=== PATIENT | male | born 1995 | race Caucasian/White ===

== ENCOUNTER 2020-11-22 11:16 | Emergency (ER) | payer SELFPAY ==
[2020-11-22 11:17] VITALS: BP 125/82; PULSE 65; RESP 18; TEMP 36.6; O2SAT 98; BMI 18.4
--- NOTE | 2020-11-22 12:01 | HMH.EDGENADL ---
ED Disposition Clinical Impression: Dysuria Disposition: Home, Self-Care Condition on Discharge: Good Instructions: DI for Urinary Retention in Men Referrals: Tarsha Ang MD [Primary Care Provider] - Vick Lowery MD [Staff Physician] - - Critical Care Critical Care Time: No Attestation: On 11/22/20, the high probability of a clinically significant, sudden or life threatening deterioration of the following system(s) required my full and direct attention, intervention and personal management. The time I documented below is in addition to time spent performing reported procedures but includes the following listed in this critical care notation. Medical Decision Making - Medical Records Medical records reviewed: Yes: I reviewed the patient's medical records. - [place]io Inquiry Pt receiving controlled substance: No Vital Signs: 11/22/20 11:17 11/22/20 12:33 11/22/20 12:39 Temperature 97.9 F Temperature Source Oral Pulse Rate 57 L 59 L Pulse Rate [Left Radial] 65 Respiratory Rate 18 Blood Pressure 113/88 113/88 Blood Pressure [Right Arm] 125/82 Blood Pressure Mean 92 Blood Pressure Mean [Right Arm] 96 Blood Pressure Source Automatic Cuff Blood Pressure Source [Right Arm] Automatic Cuff Blood Pressure Position Sitting 02 Sat by Pulse Oximetry 98 99 99 Oxygen Delivery Method Room Air Room Air - Lab Data Lab Results 11/22/20 12:18: Urine Color Yellow, Urine Appearance Clear, Urine pH 6.0, Ur Specific [place] 1.020, Urine Protein Negative, Urine Glucose (UA) Negative, Urine Ketones Negative, Urine Blood Negative, Urine Nitrate Negative, Urine Bilirubin Negative, Urine Urobilinogen 1.0, Ur Leukocyte Esterase Negative, Urine RBC None, Urine WBC None, Ur Squamous Epith Cells Occasional, Amorphous Sediment Trace, Urine Bacteria None, Urine Mucus Trace - Reevaluation(s) Time: 13:28 Reevaluation #1: We did perform bladder scan on the patient and he had 200 cc urine in the bladder. We did give him some oral fluids. The patient was able to void without any difficulty. There is no significant bladder pain. The patient has since then voided twice while in the emergency department. Urinalysis was unremarkable. I did instruct the patient to follow-up with his primary doctor for medication reconciliation. If he is to has any other hesitancy issues or any other symptoms he is return the emergency department immediately. Patient verbalized understanding. Medical Decision Narrative: 25-year-old male presented to the emergency department with some dysuria. Patient states that he has been able to urinate early this morning. Patient is concerned he may be a medication reaction. Symptoms did start after he started taking his antidepressant. Bladder scan will be obtained. General Adult HPI - General Chief complaint: Urogenital-Male Stated complaint: unable to urinate Time Seen by Provider: 11/22/20 11:20 Mode of Arrival: Ambulatory Limitations: No Limitations Description of Symptoms (Recalled from ER Triage Doc. by RN): c/o feeling of needing to urinate since this morning but unable to. States he has had a sip of mountain dew other than that no other drinks. He thinks he went in the middle of the night. Concern that his dose of cymbalta is causing some issues such as dizziness and nausea. - History of Present Illness HPI narrative: This is a 25-year-old male presented to the emergency department with dysuria. Patient states that he woke up this morning and was having difficulties urinating. He states that he went to urinate but could not get anything out. He states that he normally urinates all morning. He has not really eaten or drank anything this morning. He is not having any pain but he does complain of some fullness in her suprapubic region. Patient denies any testicular pain. No hematuria. No fevers or chills. Of note, the patient was recently placed back on antidepres
--- NOTE | 2020-11-22 12:08 | PC.NURSE ---
bladder scan with 221 urine noted.
--- NOTE | 2020-11-22 12:08 | PC.NURSE ---
Pt attempting to urinate at this time.
[2020-11-22 12:23] LABS: Microscopic, Urine URINE MICROSCOPIC (MICROSCOPIC)
[2020-11-22 12:24] LABS: Appearance,Urine CLEAR (Clear); Bilirubin,Urine Negative (Negative); Blood, Urine Negative (Negative); Color,Urine YELLOW (Yellow); Glucose,Urine (UA) Negative (Negative); Ketones,Urine Negative (Negative); Leukocyte Esterase,Urine Negative (Negative); Nitrate,Urine Negative (Negative); Protein,Urine Negative (Negative)
--- NOTE | 2020-11-22 12:27 | PC.NURSE ---
Pt was able to urinate and sample was sent to lab
[2020-11-22 12:33] VITALS: BP 113/88; PULSE 57; O2SAT 99
[2020-11-22 12:36] LABS: Amorphous Sediment,Urine Trace /lpf; Mucus,Urine Trace /lpf; Squamous Epithelial Cell,Urine Occasional #/hpf (0-5)
[2020-11-22 12:39] VITALS: BP 113/88; PULSE 59; O2SAT 99
[2020-11-22 13:50] VITALS: BP 115/71; PULSE 58; RESP 20; TEMP 36.6; O2SAT 99
== END 2020-11-22 13:52 | disposition home or self-care (01) ==
PROVIDERS: Emergency Provider Emergency Medicine; PCP Family Medicine
DX: R30.0 Dysuria (principal); R42 Dizziness and giddiness; F17.210 Nicotine dependence, cigarettes, uncomplicated; Z88.0 Allergy status to penicillin
CPT/HCPCS: 81001; 99282

== ENCOUNTER → 2021-05-10 10:58 | Outpatient (CLI) | payer BC, SELFPAY ==
[2021-05-11 10:37] LABS: Covid-19 Nasal PCR Sendout Lex NOT DETECTED
== END ==
PROVIDERS: Visit Provider Nurse Practitioner
DX: Z20.822 Contact with and (suspected) exposure to COVID-19 (principal)
CPT/HCPCS: C9803; U0004; U0005

== ENCOUNTER 2021-08-25 10:38 | Emergency (ER) | payer BC, SELFPAY ==
[2021-08-25 10:39] VITALS: BP 136/79; PULSE 79; RESP 14; TEMP 36.6; O2SAT 98; BMI 27.4
--- NOTE | 2021-08-25 10:57 | HMH.EDGENADL ---
ED Disposition Clinical Impression: Ulcer Disposition: Home, Self-Care Condition on Discharge: Good Instructions: How to Detect and Treat STDs Additional Instructions: Please follow-up with your primary care physician in 2 to 3 days for further management. You have also been given lidocaine cream apply to affected area as needed. May also supplement with Tylenol and ibuprofen. Referrals: Tarsha Ang MD [Primary Care Provider] - Forms: Work/School Release - Critical Care Critical Care Time: No Attestation: On 08/25/21, the high probability of a clinically significant, sudden or life threatening deterioration of the following system(s) required my full and direct attention, intervention and personal management. The time I documented below is in addition to time spent performing reported procedures but includes the following listed in this critical care notation. Medical Decision Making - Medical Records Medical records reviewed: Yes: I reviewed the patient's medical records. - Arcadio Inquiry Pt receiving controlled substance: No Vital Signs: 08/25/21 10:39 08/25/21 12:06 Temperature 97.9 F 98 F Temperature Source Oral Pulse Rate 74 Pulse Rate [Right Radial] 79 Respiratory Rate 14 17 Blood Pressure 134/79 Blood Pressure [Right Arm] 136/79 Blood Pressure Mean [Right Arm] 98 Blood Pressure Source [Right Arm] Automatic Cuff Blood Pressure Position [Right Arm] Sitting 02 Sat by Pulse Oximetry 98 Oxygen Delivery Method Room Air Room Air - Lab Data Lab results reviewed: Yes: I reviewed the patient's lab results. Orders (Tests/Meds): ED MEDICATIONS Discontinued Medications Generic Name Dose Route Start Last Admin Trade Name Josie PRN Reason Stop Dose Admin Azithromycin 1,000 mg 08/25/21 11:01 08/25/21 12:00 Azithromycin 250mg Tablet PO 08/25/21 11:02 1,000 mg ONCE ONE Administration Ceftriaxone Sodium 500 mg 08/25/21 11:03 08/25/21 11:58 Ceftriaxone 500mg Vial IM 08/25/21 11:04 500 mg ONCE ONE Administration Lidocaine 35 gm 08/25/21 11:12 08/25/21 11:57 Lidocaine 5% Ointment 35gm Tube TP 08/25/21 11:13 1 g ONCE ONE Administration Lidocaine HCl 0 ml 08/25/21 11:03 08/25/21 11:58 Lidocaine 1% 5ml Pf Vial IM 08/25/21 11:04 1 ml ONCE ONE Administration ORDERS Category Date Time Status Rapid Plasma Reagin Ab Titer Stat Lab 08/25/21 11:19 Received Medical Decision Narrative: Mr. Russo is a 26-year-old male with no significant past medical history presenting to the emergency department with a lesion on his penis for the last 2 to 3 days. Patient is afebrile and hemodynamically stable on arrival. On physical exam patient has a small ulceration around 7:00 on the penis with no significant surrounding erythema. No significant scrotal swelling. Genital area symmetrical. No overlying skin changes other than the lesion. No significant pelvic tenderness. Patient is given lidocaine cream for comfort along with Tylenol and ibuprofen. Gonorrhea, chlamydia, RPR are obtained for further evaluation results pending. Patient will be notified of results if positive. Patient is also given azithromycin and ceftriaxone prophylactically. Patient is discharged with lidocaine cream and informed to follow-up with primary care physician in 2 to 3 days for further management. Patient informed not to have any sexual activity until results are known. Patient informed to return for worsening symptoms and is discharged in stable condition. General Adult HPI - General Chief complaint: Skin/Abscess/Foreign Body Stated complaint: groin pain Time Seen by Provider: 08/25/21 10:50 Mode of Arrival: Ambulatory Source of Information: Patient Limitations: No Limitations Description of Symptoms (Recalled from ER Triage Doc. by RN): Pt reports has a cyst like area on penis. Reports area has been present x2 days, states has tried to make area drain with no succes
--- NOTE | 2021-08-25 11:43 | PC.NURSE ---
patient ambulatory to restroom without complications
--- NOTE | 2021-08-25 11:45 | PC.NURSE ---
Urine sent to lab
--- NOTE | 2021-08-25 11:46 | PC.NURSE ---
patient back from restroom without complications
[2021-08-25 12:06] VITALS: BP 134/79; PULSE 74; RESP 17; TEMP 36.6; O2SAT 99
[2021-08-26 13:41] LABS: Rapid Plasma Reagin Ab Titer Non Reactive (NonRea<1:1)
[2021-08-26 22:16] LABS: Neisseria gonorrhoeae, NAA Negative (Negative)
== END 2021-08-25 12:12 | disposition home or self-care (01) ==
PROVIDERS: Emergency Provider Student in an Organized Health Care Education/Training Program; PCP Family Medicine
DX: N48.5 Ulcer of penis (principal); F17.210 Nicotine dependence, cigarettes, uncomplicated; Z88.0 Allergy status to penicillin
CPT/HCPCS: 36415; 86592; 87491; 87591; 96372; 99283; J0696

== ENCOUNTER 2021-10-23 17:57 | Emergency (ER) | payer BC, SELFPAY ==
[2021-10-23 19:30] VITALS: BP 127/82; PULSE 122; O2SAT 100
--- NOTE | 2021-10-23 19:39 | XR_ITS ---
PROCEDURE INFORMATION: Exam: XR Chest Exam date and time: 10/23/2021 7:44 PM Age: 26 years old Clinical indication: Fever; Additional info: Covid symptoms TECHNIQUE: Imaging protocol: Radiologic exam of the chest. Views: 2 views. COMPARISON: No relevant prior studies available. FINDINGS: Lungs: No lobar consolidation. 10 mm nodule at the right lung base. Pleural spaces: No pneumothorax. Heart/Mediastinum: No cardiomegaly. Bones/joints: No acute fracture. IMPRESSION: 1. No lobar consolidation. 2. 10 mm nodule at the right lung base.
[2021-10-23 19:40] VITALS: BP 124/82; PULSE 105; RESP 18; TEMP 37.7; O2SAT 99; BMI 23.2
[2021-10-23 19:51] LABS: Influenza A, PCR Not Detected (NotDetected); Influenza B, PCR Not Detected (NotDetected)
[2021-10-23 19:58] LABS: Basophils # 0.1 K/mm3 (0-0.2); Basophils % 0.6 % (0.1-2.0); Eosinophils # 0.3 K/mm3 (0.0-0.4); Eosinophils % 3.3 % (0.1-12.0); Hematocrit 41.7 % (42.0-52.0); Hemoglobin 14.2 g/dL (14.1-18.0); Lymphocytes # 0.4 K/mm3 (0.7-4.5); Lymphocytes % 4.7 % (10-50); Mean Corpuscular Hemoglobin 30.6 pg (27.0-31.2); Mean Platelet Volume 7.4 fl (7.4-10.4); Monocytes # 0.4 K/mm3 (0.1-1.0); Monocytes % 5.4 % (1.7-9.3); Neutrophils # 6.9 K/mm3 (1.8-7.8); Platelet Count 211 K/mm3 (142-424); Red Blood Count 4.64 M/mm3 (4.60-6.20); Red Cell Distribution Width 12.2 % (11.5-17.5)
[2021-10-23 20:07] LABS: MANUAL DIFFERENTIAL MANUAL DIFFERENTIAL (MANUAL DIFF)
[2021-10-23 20:11] LABS: Alanine Aminotransferase 30 U/L (12-78); Albumin Level 4.3 g/dl (3.5-5.0); Albumin/Globulin Ratio 1.5 (1.1-1.8); Alkaline Phosphatase 82 U/L (38-126); Anion Gap 12.5 mEq/L (5-15); Aspartate Amino Transferase 29 U/L (17-59); Blood Urea Nitrogen 15 mg/dl (9-20); Calcium 9.2 mg/dl (8.4-10.2); Carbon Dioxide 26 mmol/L (22.0-30.0); Chloride 103 mmol/L (98-107); Creatinine Clearance Estimated 92 mL/min (50-200); Estimated Glomerular Filt Rate 91 ml/min (>60); GFR (African American) 110 ML/MIN (>60); Globulin 2.8 g/dL (1.3-3.2); Glucose 101 mg/dl (74-100); Potassium 3.5 mmoL/L (3.5-5.1); Sodium 138 mmol/L (136-145); Total Protein,Serum 7.1 g/dl (6.3-8.2)
[2021-10-23 20:14] LABS: Bilirubin,Total < 0.1 mg/dl (0.2-1.3)
[2021-10-23 20:16] LABS: C-Reactive Protein 12.4 mg/L (0-4)
[2021-10-23 20:17] LABS: Eosinophils % 1 % (0-3); Lymphocytes % 4 % (10-50); Monocytes % 2 % (2-9); Neutrophils % 84 % (42-76); Platelet Estimate Normal; RBC Morphology Normal; Total Cells Counted 100
--- NOTE | 2021-10-23 20:22 | PC.NURSE ---
Patient condition re-evaluated. Patient states that he is feeling much better. States that his headache is a 3/10 (down from 9/10). Patient is very drowsy after receiving benadryl IV, states that his ride is on their way.
[2021-10-23 20:30] LABS: Procalcitonin 0.081 ng/mL (0.0-2.0)
--- NOTE | 2021-10-23 20:30 | HMH.EDURI ---
ED Disposition Clinical Impression: COVID-19 Disposition: Home, Self-Care Condition on Discharge: Good Instructions: DI for COVID-19 (Suspected or Confirmed ) Additional Instructions: fluids and use meds and see pcp for follow up Referrals: Tarsha Ang MD [Primary Care Provider] - - Critical Care Critical Care Time: No Attestation: On 10/23/21, the high probability of a clinically significant, sudden or life threatening deterioration of the following system(s) required my full and direct attention, intervention and personal management. The time I documented below is in addition to time spent performing reported procedures but includes the following listed in this critical care notation. Medical Decision Making - Medical Records Medical records reviewed: Yes: I reviewed the patient's medical records. - Ar[place]io Inquiry Pt receiving controlled substance: No Vital Signs: 10/23/21 19:30 10/23/21 19:40 Temperature 99.8 F H Temperature Source Oral Pulse Rate 122 H Pulse Rate [Apical] 105 H Respiratory Rate 18 Blood Pressure 127/82 Blood Pressure [Right Arm] 124/82 Blood Pressure Mean [Right Arm] 96 Blood Pressure Source [Right Arm] Automatic Cuff Blood Pressure Position [Right Arm] Sitting 02 Sat by Pulse Oximetry 100 99 Oxygen Delivery Method Room Air - Lab Data Lab results reviewed: Yes: I reviewed the patient's lab results. Lab Results 10/23/21 19:30: SARS-CoV-2 (PCR) Detected A, Influenza A Untype (PCR) Not detected, Influenza Type B (PCR) Not detected 10/23/21 19:50: WBC 8.0, RBC 4.64, Hgb 14.2, Hct 41.7 L, MCV 90.0, MCH 30.6, MCHC 34.0, RDW 12.2, Plt Count 211, MPV 7.4, Neut % (Auto) 86.0 H, Lymph % (Auto) 4.7 L, [place] % (Auto) 5.4, Eos % (Auto) 3.3, Baso % (Auto) 0.6, Neut # (Auto) 6.9, Lymph # (Auto) 0.4 L, [place] # (Auto) 0.4, Eos # (Auto) 0.3, Baso # (Auto) 0.1, Total Counted 100, Neutrophils % (Manual) 84 H, Band Neutrophils % 9.0 H, Lymphocytes % (Manual) 4 L, Monocytes % (Manual) 2, Eosinophils % (Manual) 1, Platelet Estimate Normal, RBC Morphology Normal, ESR 9 10/23/21 19:50: Sodium 138, Potassium 3.5, Chloride 103, Carbon Dioxide 26, Anion Gap 12.5, BUN 15, Creatinine 1.00, Estimated Creat Clear 92, Estimated GFR 91, Est GFR ( Amer) 110, Glucose 101 H, Calcium 9.2, Total Bilirubin < 0.1 L, AST 29, ALT 30, Alkaline Phosphatase 82, C-Reactive Protein 12.4 H, Total Protein 7.1, Albumin 4.3, Globulin 2.8, Albumin/Globulin Ratio 1.5, Procalcitonin 0.081 Result diagrams: 10/23/21 19:50 10/23/21 19:50 Orders (Tests/Meds): ED MEDICATIONS Generic Name Dose Route Start Last Admin Trade Name Freq PRN Reason Stop Dose Admin Sodium Chloride 1,000 mls @ 999 mls/hr 10/23/21 20:00 10/23/21 19:52 Sod Chlor 0.9% 1000ml Bag IV 10/23/21 21:00 999 mls/hr .Q1H1M AMANDA Administration Sodium Chloride 1,000 mls @ 999 mls/hr 10/23/21 20:30 10/23/21 20:38 Sod Chlor 0.9% 1000ml Bag IV 10/23/21 21:30 999 mls/hr .Q1H1M AMANDA Administration Discontinued Medications Generic Name Dose Route Start Last Admin Trade Name Freq PRN Reason Stop Dose Admin Acetaminophen 1,000 mg 10/23/21 19:49 10/23/21 19:53 Acetaminophen 500mg Tab PO 10/23/21 19:50 1,000 mg ONCE ONE Administration Diphenhydramine HCl 50 mg 10/23/21 19:48 10/23/21 19:52 Diphenhydramine 50mg/Ml Vial IV 10/23/21 19:49 50 mg ONCE ONE Administration Ketorolac Tromethamine 30 mg 10/23/21 19:47 10/23/21 19:52 Ketorolac 30mg/Ml Vial IV 10/23/21 19:48 30 mg ONCE ONE Administration Metoclopramide HCl 10 mg 10/23/21 19:47 10/23/21 19:52 Metoclopramide Hcl 10mg/2ml Vial IVP 10/23/21 19:48 10 mg ONCE ONE Administration - Radiology Data #1 Image(s): Chest Image Reviewed: Yes I have reviewed radiologist's interpretation Preliminary Findings: Normal/NAD Medical Decision Narrative: covid -19 and has stable cxr and exam URI/Sore Throat HPI - General Chief
[2021-10-23 20:40] LABS: Erythrocyte Sedimentation Rate 9 mm/hr (0-15)
[2021-10-23 20:46] LABS: Coronavirus 19, PCR Detected (NotDetected)
[2021-10-23 21:07] LABS: Microscopic, Urine URINE MICROSCOPIC (MICROSCOPIC)
[2021-10-23 21:10] LABS: Appearance,Urine CLEAR (Clear); Bilirubin,Urine Negative (Negative); Blood, Urine Negative (Negative); Color,Urine YELLOW (Yellow); Glucose,Urine (UA) Negative (Negative); Ketones,Urine TRACE (Negative); Leukocyte Esterase,Urine Negative (Negative); Nitrate,Urine Negative (Negative); PH,Urine 5.5 (5.0-8.5); Protein,Urine Negative (Negative); Urobilinogen,Urine 0.2 EU/dl (0.2)
[2021-10-23 21:14] LABS: Squamous Epithelial Cell,Urine Occasional #/hpf (0-5); WBC,Urine Occasional #/hpf (0-3)
[2021-10-23 21:36] VITALS: BP 122/81; PULSE 88; RESP 18; TEMP 36.8; O2SAT 99
== END 2021-10-23 21:39 | disposition home or self-care (01) ==
PROVIDERS: Emergency Provider Emergency Medicine; PCP Family Medicine
DX: U07.1 COVID-19 (principal); R50.9 Fever, unspecified; R51.9 Headache, unspecified; R05.9 Cough, unspecified; Z72.0 Tobacco use
CPT/HCPCS: 71046; 80053; 81001; 84145; 85007; 85025; 85651; 86140; 96361; 96374; 96375; 99284; C9803; U0003; U0005

== ENCOUNTER → 2021-11-19 13:24 | Outpatient (CLI) | payer BC, SELFPAY ==
--- NOTE | 2021-11-19 13:29 | CT_ITS ---
FINAL REPORT CLINICAL HISTORY: PULMONARY NODULE SEEN ON RECENT CXR FINDINGS: Axial CT images of the chest were obtained with contrast. Coronal reformatted images were also obtained. This study was performed with techniques to keep radiation doses as low as reasonably achievable, (ALARA). Individualized dose reduction techniques using automated exposure control or adjustment of mA and/or KV according to the patient's size were employed. There are borderline upper right mediastinal lymph nodes that are nonspecific.No axillary mass or adenopathy is identified. On lung window images, a calcified granuloma is seen in the right lower lobe. There is a 5 mm ground-glass nodule in the inferior right upper lobe on image 40 that is most likely benign. No localized pulmonary inflammatory process is identified. Limited images of the upper abdomen reveal no mass or localized inflammatory process. IMPRESSION: Likely benign 5 mm ground-glass nodule in the inferior right upper lobe. Calcified granuloma in the right lower lobe. Reviewed, Interpreted and Dictated by Giancarlo Mullen III, MD Transcribed by Damion Guallpa Authenticated and [facility]
== END ==
LOC: RAD 13:25
PROVIDERS: PCP Family Medicine; Visit Provider Family Medicine
DX: R91.1 Solitary pulmonary nodule (principal)
CPT/HCPCS: 71260; Q9967

== ENCOUNTER → 2022-04-28 12:57 | Outpatient (CLI) | payer BC, SELFPAY | PROVIDERS: PCP Family Medicine; Visit Provider Specialist | DX: G47.30 Sleep apnea, unspecified (principal); R06.83 Snoring | CPT/HCPCS: G0399 ==

== ENCOUNTER 2023-08-29 13:47 | Outpatient (CLI) | payer BC, OTHER, SELFPAY ==
[2023-09-03 12:43] LABS: D001-IgE D pteronyssinus <0.10 kU/L (Class 0); D002-IgE D farinae <0.10 kU/L (Class 0); E001-IgE Cat Dander 0.19 kU/L (Class 0/I); E005-IgE Dog Dander <0.10 kU/L (Class 0); E072-IgE Mouse Urine <0.10 kU/L (Class 0); G002-IgE Bermuda Grass 0.93 kU/L (Class II); G006-IgE Timothy Grass 4.03 kU/L (Class IV); I006-IgE Cockroach, German <0.10 kU/L (Class 0); Immunoglobulin E, Total 83 IU/mL (6-495); M001-IgE Penicillium chrysogen <0.10 kU/L (Class 0); M002-IgE Cladosporium herbarum <0.10 kU/L (Class 0); M003-IgE Aspergillus fumigatus <0.10 kU/L (Class 0); M006-IgE Alternaria alternata <0.10 kU/L (Class 0); T001-IgE Maple/Box Elder <0.10 kU/L (Class 0); T003-IgE Common Silver Birch 0.19 kU/L (Class 0/I); T006-IgE Cedar, Mountain 0.71 kU/L (Class II); T007-IgE Oak, White <0.10 kU/L (Class 0); T008-IgE Elm, American 0.18 kU/L (Class 0/I); T010-IgE Walnut 0.34 kU/L (Class I); T011-IgE Maple Leaf Sycamore 0.22 kU/L (Class 0/I); T014-IgE Cottonwood <0.10 kU/L (Class 0); T015-IgE Ash, White 2.14 kU/L (Class III); T022-IgE Pecan, Hickory 2.93 kU/L (Class III); T070-IgE White Mulberry <0.10 kU/L (Class 0); W001-IgE Ragweed, Short 1.38 kU/L (Class II); W011-IgE Thistle, Russian <0.10 kU/L (Class 0); W014-IgE Pigweed, Common <0.10 kU/L (Class 0); W018-IgE Sheep Sorrel <0.10 kU/L (Class 0)
== END 2023-08-29 23:59 | disposition home or self-care (01) ==
LOC: LAB 13:48
PROVIDERS: PCP Family Medicine; Visit Provider Nurse Practitioner
DX: J32.8 Other chronic sinusitis (principal)
CPT/HCPCS: 36415; 82785; 86003

== ENCOUNTER 2023-09-11 07:04 | Outpatient (CLI) | payer BC, SELFPAY ==
--- NOTE | 2023-09-11 07:14 | FL_ITS ---
FINAL REPORT CLINICAL HISTORY: dysphagia ft 1:08 dap 356.81 FINDINGS: ESOPHAGRAM HISTORY: Epigastric pain. Gastroesophageal reflux disease. PROCEDURE: The patient ingested barium. Effervescent crystals were also administered. Spot and overhead films were obtained. Number of images: 9 Fluoro time: 1 minute 8 seconds DAP: 356.81 uGym2. FINDINGS: The esophagus is normal. There is no hiatal hernia. A 13 mm barium tablet passes through the esophagus and stomach without delay. There is no gastroesophageal reflux. Peristalsis is normal. IMPRESSION: Normal esophagram. Films reviewed , interpreted and dictated by Dr. Mullen. Transcribed by Joseph Dejesus PA-C. Reviewed, Interpreted and Dictated by Giancarlo Mullen III, MD Transcribed by ALICJA Ibarra Authenticated and [facility]
--- NOTE | 2023-09-11 07:14 | CT_ITS ---
FINAL REPORT TECHNIQUE: Thin section axial CT images of the facial bones and sinuses were obtained without contrast. Coronal reformatted images were also obtained.This study was performed with techniques to keep radiation doses as low as reasonably achievable, (ALARA). Individualized dose reduction techniques using automated exposure control or adjustment of mA and/or kV according to the patient''''s size were employed. CLINICAL HISTORY: chronis sinusitis FINDINGS: There is mild mucosal thickening in multiple sinuses. There is narrowing of the left maxillary ostia secondary to mucosal thickening. No fluid levels are identified. There is mild leftward nasal septal deviation. No fracture or acute bony abnormality is identified. IMPRESSION: Sinusitis as above. Reviewed, Interpreted and Dictated by Giancarlo Mullen III, MD Transcribed by Jeannine Mccann Authenticated and [facility]
[2023-09-11] MEDS: BARIUM SULFATE(LIQUID E-Z-PAQUE);355ML BOTTLE 355 ML PO (08:02)
[2023-09-11] MEDS: BARIUM SULFATE (E-Z-HD 340GM);135ML BOTTLE 135 ML PO (08:02)
[2023-09-11] MEDS: E-Z-GASII EFFERVESCENT GRANULES;1PK 1 EACH PO (08:03)
[2023-09-11 15:08] LABS: Basophils # 0.1 K/mm3 (0-0.2); Basophils % 1.2 % (0.1-2.0); Eosinophils # 0.1 K/mm3 (0.0-0.4); Eosinophils % 1.7 % (0.1-12.0); Hemoglobin 15.3 g/dL (14.1-18.0); Lymphocytes # 1.7 K/mm3 (0.7-4.5); Lymphocytes % 24.2 % (10-50); Mean Corpuscular HGB Conc 33.9 g/dL (31.8-35.4); Mean Corpuscular Hemoglobin 30.2 pg (27.0-31.2); Mean Corpuscular Volume 89.3 fl (80-94); Mean Platelet Volume 7.5 fl (7.4-10.4); Monocytes # 0.4 K/mm3 (0.1-1.0); Monocytes % 5.2 % (1.7-9.3); Neutrophils # 4.9 K/mm3 (1.8-7.8); Neutrophils % 67.7 % (37.0-80.0); Platelet Count 239 K/mm3 (142-424); Red Blood Count 5.05 M/mm3 (4.60-6.20); Red Cell Distribution Width 13.5 % (11.5-17.5); White Blood Count 7.2 K/mm3 (4.8-10.8)
[2023-09-13 07:06] LABS: Sex Hormone Binding Globulin 12.4 nmol/L (16.5-55.9)
[2023-09-13 07:13] LABS: Estradiol 22.9 pg/mL (7.6-42.6)
[2023-09-13 08:22] LABS: LH 7.3 mIU/mL (1.7-8.6); Prolactin 5.2 ng/mL (3.6-31.5)
[2023-09-19 00:09] LABS: Free Testosterone (Direct) 3.8 pg/mL (9.3-26.5)
[2023-09-22 11:05] LABS: Dihydrotestosterone DHT 10
== END 2023-09-11 23:59 | disposition home or self-care (01) ==
PROVIDERS: Urology; PCP Family Medicine; Visit Provider Nurse Practitioner
DX: R13.10 Dysphagia, unspecified (principal); J32.9 Chronic sinusitis, unspecified; E29.1 Testicular hypofunction; N52.9 Male erectile dysfunction, unspecified; F17.210 Nicotine dependence, cigarettes, uncomplicated; F17.290 Nicotine dependence, other tobacco product, uncomplicated
CPT/HCPCS: 36415; 70486; 74220; 82626; 82670; 83001; 83002; 84146; 84270; 85025

== ENCOUNTER 2023-10-25 13:07 | Emergency (ER) | payer BC, OTHER, SELFPAY ==
[2023-10-25 13:25] VITALS: BP 139/69; PULSE 70; RESP 19; TEMP 36.7; O2SAT 99; BMI 26.6
--- NOTE | 2023-10-25 13:45 | ED_ITS ---
Discharge Plan Disposition Patient Disposition: Home, Self-Care Condition: Good Prescriptions Prescriptions: New methylprednisolone [Medrol (Mati)] 4 mg tablets,dose pack See Rx Instructions .Route .COMPLEX 6 Days Qty: 21 0RF Rx Instructions: taper pack; amoxicillin-pot clavulanate 875-125 mg Tablet 1 tab PO Q12H 7 Days Qty: 14 0RF guaifenesin [Mucinex] 600 mg tablet extended release 12hr 600 mg PO BID PRN (Reason: cough) Qty: 20 0RF No Action azelastine 137 mcg (0.1 %) aerosol,spray 1 spray intranasal BID Qty: 30 2RF Rx Instructions: administer into each nostril famotidine 20 mg tablet 40 mg PO HS Qty: 30 2RF tadalafil [Cialis] 5 mg tablet 5 mg PO DAILY Qty: 30 2RF ibuprofen 200 mg tablet 200 mg PO Q6H PRN amitriptyline 25 mg tablet 50 mg PO HS Patient Comments: TAKE 1 TO 2 TABLETS BY MOUTH AT BEDTIME NEEDED omeprazole 40 mg capsule,delayed release(DR/EC) 40 mg PO DAILY Qty: 30 3RF fluticasone propionate [Flonase Allergy Relief] 50 mcg/actuation spray,suspension 1 spray intranasal BID Qty: 60 3RF Rx Instructions: administer into each nostril quetiapine [Seroquel] 100 mg tablet 100 mg PO QHS Qty: 90 0RF levocetirizine 5 mg tablet See Rx Instructions .ROUTE .COMPLEX Qty: 90 3RF Dose Instruction: Take 1 tablet by mouth once daily Rx Instructions: Take 1 tablet by mouth once daily testosterone cypionate [Depo-Testosterone] 200 mg/mL oil 200 mg SQ WEEKLY 7 Days Qty: 1 1RF Rx Instructions: He will use 1/2 cc SQ weekly after I teach him how. Referrals Follow up/Referrals: Lorenzo Chou MD [Primary Care Provider] - See instructions Activity Restrictions/Add. Instructions Additional Instructions/Restrictions: *Monitor Temp, Over the counter Motrin or Tylenol as directed/as needed Tylenol every 4 hours and Motrin every 6 hours (as long as your family doctor has told you that you can take it) for fever or pain. and straight to ER if unable to lower temp less than 101.0 after medication given *Warm salt water gargles may help to soothe the throat *Throat Lozenges? *Warm fluids like tea with honey may help to soothe the throat? *Sleep elevated *Humidifier/Vaporizer Take medication as prescribed Follow up IMMEDIATELY for new or worsening symptoms or no Noticeable improvement over the next 48-72 hours. 911 for difficulty breathing or swallowing Clinical Impressions Clinical Impression: Sinusitis Qualifiers: Sinusitis location: unspecified location Chronicity: unspecified Qualified Code(s): J32.9 - Chronic sinusitis, unspecified Instructions Patient Instructions: Sinusitis, DI for Sinusitis Print Language Print Language: Spanish Discharge ED Provider: Lindy Mcallister [facility] General Stated complaint: headache, pain, pressure Mode of Arrival: Ambulatory Source of Information: Patient Limitations: No Limitations Time Seen by Provider: 10/25/23 13:45 Description of Symptoms (Recalled from Triage Doc. by RN): PATIENT C/O SORE THROAT, SINUS DRAINAGE/PRESSURE, AND COUGH X 4 DAYS HEENT Symptoms (Recalled from RN notes): Yes Resp Symptoms (Recalled from RN notes): Yes Skin Symptoms (Recalled from RN notes): No MS Symptoms (Recalled from RN notes): No Functional Status (Recalled from RN notes): WNL History of Present Illness Provider Complaint: Patient states that he has been having sinus pain and pressure with drainage in the back of his throat that is making his throat feel sore and scratchy so today when he was still having pressure behind his eyes he came in to get checked Related Data Home Medications ?Medication ?Instructions ?Recorded ?Confirmed ibuprofen 200 mg tablet 200 mg PO Q6H PRN 04/27/22 10/03/23 amitriptyline 25 mg tablet 50 mg PO HS 08/29/23 10/03/23 Previous Rx's ?Medication ?Instructions ?Recorded quetiapine 100 mg tablet (Seroquel) 100 mg PO QHS #90 tabs 08/21/23 fluticasone propionate 50 1 spray intranasal BID #60 mL 08/29/23 mcg/actuation nasal spray,suspension (Flonase Allergy Relief) omeprazole 40 mg capsule,delayed 40 mg PO DAILY #30 caps 08/29/23 release azelastine 137 mcg (0.1 %) nasal 1 spray intranasal BID #30 mL 09/18/23 spray famotidine 20 mg tablet 40 mg (2 x 20 mg) PO HS #30 tabs 09/18/23 tadalafil 5 mg tablet (Cialis) 5 mg PO DAILY #30 tabs 10/02/23 levocetirizine 5 mg tablet See Rx Instructions .Route 10/10/23 .COMPLEX #90 tabs testosterone cypionate 200 mg/mL 200 mg SQ WEEKLY 1 week #1 mL 10/23/23 intramuscular oil (Depo-Testosterone) amoxicillin 875 mg-potassium 1 tab PO Q12H 7 days #14 tabs 10/25/23 clavulanate 125 mg tablet guaifenesin 600 mg tablet, 600 mg PO BID PRN cough #20 tabs 10/25/23 extended release 12 hr (Mucinex) methylprednisolone 4 mg tablets in See Rx Instructions .Route 10/25/23 a dose pack (Medrol (Mati)) .COMPLEX 6 days #21 tabs Allergies Allergy/AdvReac Type Severity Reaction Status Date / Time No Known Allergies Allergy Verified 10/03/23 13:19 Worker's Comp Is this a Worker's Comp case?: No [facility] Disclaimer: The information contained in this section may have been updated after the patient was seen, as this information can be updated by other users. Medical History GERD (gastroesophageal reflux disease) Deviated nasal septum Rhinitis, allergic Sleep disorder Bipolar I disorder Active follow-up with behavioral health at [facility]. Family History Other Cancer Coronary artery disease Diabetes Heart attack Hyperlipidemia Hypertension Social History Smoking Status: Current every day smoker tobacco type: cigarettes packs per day: 1 and e-cigarettes alcohol intake: current alcohol intake frequency: holidays/special occasions only substance use type: denies use and marijuana current occupational status: employed Travel in the last 8 weeks: None housing: house number of children: 0 ROS Obtained: Yes All systems reviewed & no additional complaints except as documented and Yes Systems reviewed as appropriate & no additional complaints except as documented ENT Ears, Nose, Mouth, and Throat: Reports system reviewed and no additional complaints, except as documented, Reports as per HPI, Reports sinus pain, Reports sinus pressure and Reports sore throat Cardiovascular Cardiovascular: Reports system reviewed and no additional complaints, except as documented and Reports as per HPI Respiratory Respiratory: Reports system reviewed and no additional complaints, except as documented and Reports as per HPI Gastrointestinal Gastrointestingal: Reports system reviewed and no additional complaints, except as documented and as per HPI Physical Exam General General appearance: alert and in no apparent distress ENT ENT exam: Present mucous membranes moist Expanded ENT Exam Nose exam: Present sinus tenderness Throat exam: Present other (PND noted); Absent tonsillar exudate Respiratory Respiratory exam: Present normal lung sounds bilaterally; Absent respiratory distress or wheezes Cardiovascular Cardiovascular exam: Present regular rate, normal rhythm and normal heart sounds Neurological Exam Neurological exam: Present alert, oriented X3 and normal gait Medical Decision Making Arcadio Inquiry Pt receiving controlled substance: No Arcadio was queried for this patient: No Vital Signs: 10/25/23 13:25 Temperature 98.0 F Temperature Source Oral Pulse Rate [Left Brachial] 70 Respiratory Rate 19 Blood Pressure [Left Arm] 139/69 Blood Pressure Mean [Left Arm] 92 Blood Pressure Source [Left Arm] Automatic Cuff Blood Pressure Position [Left Arm] Sitting 02 Sat by Pulse Oximetry 99 Oxygen Delivery Method Room Air
[2023-10-25 14:01] VITALS: BP 139/69; PULSE 70; RESP 19; TEMP 36.7; O2SAT 99
== END 2023-10-25 14:05 | disposition home or self-care (01) ==
PROVIDERS: Emergency Provider Nurse Practitioner; PCP Family Medicine
DX: J01.90 Acute sinusitis, unspecified (principal); R09.82 Postnasal drip; R07.0 Pain in throat
CPT/HCPCS: 99204; 99212; G0463

== ENCOUNTER 2023-11-30 13:29 | Emergency (ER) | payer BC, OTHER, SELFPAY ==
[2023-11-30 13:45] VITALS: BP 136/75; PULSE 62; RESP 18; TEMP 36.6; O2SAT 97; BMI 26.4
--- NOTE | 2023-11-30 14:03 | EXP.UTC ---
Discharge Plan Disposition Patient Disposition: Home, Self-Care Condition: Good Prescriptions Prescriptions: New permethrin 5 % cream 1 applic topical Q14D Qty: 60 0RF Rx Instructions: apply second treatment 14 days after first treatment if live mites remain triamcinolone acetonide 0.1 % cream 1 applic topical BID PRN (Reason: itching) Qty: 30 0RF diphenhydramine HCl 25 mg capsule 25 mg PO Q6HP PRN (Reason: Itching) Qty: 30 0RF methylprednisolone 4 mg Tablets,Dose Pack 4 mg PO DIRECTED 6 Days Qty: 21 0RF Rx Instructions: Take 1 pack as directed for 6 days No Action famotidine 20 mg tablet 40 mg PO HS Qty: 30 2RF oxycodone-acetaminophen 5-325 mg tablet 1 tab PO Patient Comments: TAKE 1 TABLET BY MOUTH EVERY 4 HOURS NEEDED ibuprofen 800 mg tablet 800 mg PO Patient Comments: TAKE 1 TABLET BY MOUTH EVERY 6 HOURS NEEDED FOR PAIN testosterone cypionate [Depo-Testosterone] 200 mg/mL oil 200 mg IM WEEKLY Qty: 1 1RF Rx Instructions: Will teach to give 35 units SQ weekly. tadalafil [Cialis] 5 mg tablet 5 mg PO DAILY Qty: 30 2RF ibuprofen 200 mg tablet 200 mg PO Q6H PRN omeprazole 40 mg capsule,delayed release(DR/EC) 40 mg PO DAILY Qty: 30 3RF fluticasone propionate [Flonase Allergy Relief] 50 mcg/actuation spray,suspension 1 spray intranasal BID Qty: 60 3RF Rx Instructions: administer into each nostril azelastine 137 mcg (0.1 %) spray,non-aerosol 1 spray intranasal BID Qty: 30 2RF Rx Instructions: administer into each nostril levocetirizine 5 mg tablet See Rx Instructions .ROUTE .COMPLEX Qty: 90 3RF Dose Instruction: Take 1 tablet by mouth once daily Rx Instructions: Take 1 tablet by mouth once daily omeprazole 20 mg capsule,delayed release(DR/EC) 40 mg PO DAILY Qty: 60 2RF quetiapine 100 mg tablet See Rx Instructions .ROUTE .COMPLEX Qty: 90 1RF Dose Instruction: TAKE 1 TABLET BY MOUTH EVERY DAY AT BEDTIME Rx Instructions: TAKE 1 TABLET BY MOUTH EVERY DAY AT BEDTIME amoxicillin-pot clavulanate 875-125 mg Tablet 1 tab PO Q12H 7 Days Qty: 14 0RF guaifenesin [Mucinex] 600 mg tablet extended release 12hr 600 mg PO BID PRN (Reason: cough) Qty: 20 0RF Referrals Follow up/Referrals: Lorenzo Chou MD [Primary Care Provider] - See instructions Activity Restrictions/Add. Instructions Additional Instructions/Restrictions: Don't start the oral steroids until tomorrow. The diphenhydramine (benedryl) will make you drowsy, so don't drive or operate heavy machinery after taking it. Don't put the topical steroids (triamcinolone) on your face or your groin. Follow up with your regular doctor. GO TO THE ER FOR ANY WORSENING SYMPTOMS OR CONCERNS Clinical Impressions Clinical Impression: Chigger bites Stand Alone Forms Stand Alone Forms: Work/School Release Instructions Patient Instructions: Methylprednisolone, Dexamethasone Injection Print Language Print Language: Yakut Discharge ED Provider: Joaquin Shelton [facility] General Stated complaint: rash Mode of Arrival: Ambulatory Source of Information: Patient Limitations: No Limitations Time Seen by Provider: 11/30/23 14:03 Description of Symptoms (Recalled from Triage Doc. by RN): rash HEENT Symptoms (Recalled from RN notes): No Resp Symptoms (Recalled from RN notes): No Skin Symptoms (Recalled from RN notes): Yes MS Symptoms (Recalled from RN notes): No Functional Status (Recalled from RN notes): na History of Present Illness Provider Complaint: He states that for the past 4 days he has had an itchy rash on his left leg and abdomen. Related Data Home Medications ?Medication ?Instructions ?Recorded ?Confirmed ibuprofen 200 mg tablet 200 mg PO Q6H PRN 04/27/22 11/13/23 ibuprofen 800 mg tablet 800 mg PO 11/13/23 11/13/23 oxycodone-acetaminophen 5 mg-325 1 tab PO
[2023-11-30 14:36] VITALS: BP 136/75; PULSE 62; RESP 18; TEMP 36.6; O2SAT 97
== END 2023-11-30 14:38 | disposition home or self-care (01) ==
PROVIDERS: Emergency Provider Nurse Practitioner Family; PCP Family Medicine
DX: B88.0 Other acariasis (principal)
CPT/HCPCS: 96372; 99212; 99214; G0463; J1100

== ENCOUNTER 2024-03-18 09:51 | Outpatient (CLI) | payer BC, SELFPAY ==
[2024-03-18 10:37] LABS: Basophils % 0.8 % (0.1-2.0); Eosinophils # 0.1 K/mm3 (0.0-0.4); Eosinophils % 1.3 % (0.1-12.0); Hematocrit 46.3 % (42.0-52.0); Hemoglobin 15.8 g/dL (14.1-18.0); Lymphocytes # 1.2 K/mm3 (0.7-4.5); Lymphocytes % 22.6 % (10-50); Mean Corpuscular HGB Conc 34.2 g/dL (31.8-35.4); Mean Corpuscular Hemoglobin 29.8 pg (27.0-31.2); Mean Corpuscular Volume 87.3 fl (80-94); Mean Platelet Volume 7.6 fl (7.4-10.4); Monocytes # 0.3 K/mm3 (0.1-1.0); Monocytes % 5.7 % (1.7-9.3); Neutrophils # 3.6 K/mm3 (1.8-7.8); Neutrophils % 69.6 % (37.0-80.0); Platelet Count 199 K/mm3 (142-424); Red Blood Count 5.31 M/mm3 (4.60-6.20); Red Cell Distribution Width 13.3 % (11.5-17.5); White Blood Count 5.2 K/mm3 (4.8-10.8)
[2024-03-19 03:36] LABS: Testosterone,Total 421 ng/dL (264-916)
[2024-03-19 06:10] LABS: Sex Hormone Binding Globulin 11.6 nmol/L (16.5-55.9)
== END 2024-03-18 23:59 | disposition home or self-care (01) ==
LOC: LAB 09:56
PROVIDERS: PCP Family Medicine; Visit Provider Urology
DX: N52.9 Male erectile dysfunction, unspecified (principal); E29.1 Testicular hypofunction
CPT/HCPCS: 36415; 84270; 84403; 85025

== ENCOUNTER 2024-06-18 13:54 | Outpatient (CLI) | payer BC, SELFPAY ==
[2024-06-18 14:35] LABS: Basophils % 0.4 % (0.1-2.0); Eosinophils # 0.1 K/mm3 (0.0-0.4); Eosinophils % 0.6 % (0.1-12.0); Hematocrit 44.2 % (42.0-52.0); Hemoglobin 15.1 g/dL (14.1-18.0); Lymphocytes # 1.5 K/mm3 (0.7-4.5); Mean Corpuscular HGB Conc 34.2 g/dL (31.8-35.4); Mean Corpuscular Hemoglobin 29.4 pg (27.0-31.2); Mean Corpuscular Volume 86.2 fl (80-94); Mean Platelet Volume 10.1 fl (7.4-10.4); Monocytes # 0.4 K/mm3 (0.1-1.0); Monocytes % 5.2 % (1.7-9.3); Neutrophils # 6.1 K/mm3 (1.8-7.8); Neutrophils % 75.6 % (37.0-80.0); Platelet Count 223 K/mm3 (142-424); Red Blood Count 5.13 M/mm3 (4.60-6.20); Red Cell Distribution Width 12.2 % (11.5-17.5); White Blood Count 8.1 K/mm3 (4.8-10.8)
[2024-06-19 08:13] LABS: Estradiol 40.6 pg/mL (7.6-42.6); Testosterone,Total 1110 ng/dL (264-916)
[2024-06-19 12:19] LABS: Sex Hormone Binding Globulin 11.2 nmol/L (16.5-55.9)
== END 2024-06-18 23:59 | disposition home or self-care (01) ==
LOC: LAB 13:55
PROVIDERS: PCP Family Medicine; Visit Provider Urology
DX: E29.1 Testicular hypofunction (principal); N52.9 Male erectile dysfunction, unspecified
CPT/HCPCS: 36415; 82670; 84270; 84403; 85025

== ENCOUNTER 2024-07-29 10:53 | Outpatient (CLI) | payer BC, SELFPAY ==
[2024-07-29 11:40] LABS: Basophils % 0.6 % (0.1-2.0); Eosinophils # 0.1 Kmm3 (0.0-0.4); Eosinophils % 1.5 % (0.1-12.0); Hematocrit 44.6 % (42.0-52.0); Hemoglobin 15.5 g/dL (14.1-18.0); Lymphocytes # 1.6 K/mm3 (0.7-4.5); Mean Corpuscular HGB Conc 34.8 g/dL (31.8-35.4); Mean Corpuscular Hemoglobin 30.2 pg (27.0-31.2); Mean Corpuscular Volume 86.8 fl (80-94); Mean Platelet Volume 9.9 fl (7.4-10.4); Monocytes # 0.4 K/mm3 (0.1-1.0); Monocytes % 6.4 % (1.7-9.3); Neutrophils # 4.4 K/mm3 (1.8-7.8); Nucleated Red Blood Cells # 0 10^3/uL; Nucleated Red Blood Cells % 0 %; Platelet Count 221 K/mm3 (142-424); Red Blood Count 5.14 M/mm3 (4.60-6.20); Red Cell Distribution Width-SD 38.4 fL; White Blood Count 6.5 K/mm3 (4.8-10.8)
[2024-07-30 13:12] LABS: Sex Hormone Binding Globulin 13.2 nmol/L (16.5-55.9); Testosterone,Total 347 ng/dL (264-916)
== END 2024-07-29 23:59 | disposition home or self-care (01) ==
LOC: LAB 10:54
PROVIDERS: PCP Family Medicine; Visit Provider Urology
DX: E29.1 Testicular hypofunction (principal); N52.9 Male erectile dysfunction, unspecified
CPT/HCPCS: 36415; 84270; 84403; 85025

== ENCOUNTER 2024-07-30 12:48 | Outpatient (CLI) | payer BC, SELFPAY ==
[2024-07-30 15:22] LABS: Semen Viscosity Watery (Normal); Volume,Semen 1.8 ml (2.0-5.0)
[2024-07-30 15:24] LABS: Sperm Morphology Normal (Normal); Sperm Motility 50 % (50-90)
[2024-07-30 15:28] LABS: 3Hr Motility Quality Weak Progression (Mod-Rapid); 3Hr Sperm Motility 25 % (50-60); Motility Quality Moderate Progression (Mod-Rapid); Sperm Count 1 mil/mm3 (20-160)
== END 2024-07-30 23:59 | disposition home or self-care (01) ==
LOC: LAB.DROPOF 12:48
PROVIDERS: PCP Family Medicine; Visit Provider Urology
DX: E29.1 Testicular hypofunction (principal); N52.9 Male erectile dysfunction, unspecified
CPT/HCPCS: 89320

== ENCOUNTER 2024-11-11 13:45 | Outpatient (CLI) | payer BC, OTHER, SELFPAY ==
[2024-11-11 14:58] LABS: Hematocrit 44.5 % (42.0-52.0); Hemoglobin 15.2 g/dL (14.1-18.0); Immature Granulocytes % 0.3 %; Mean Corpuscular HGB Conc 34.2 g/dL (31.8-35.4); Mean Corpuscular Hemoglobin 30.1 pg (27.0-31.2); Mean Corpuscular Volume 88.1 fl (80-94); Nucleated Red Blood Cells % 0 %; Platelet Count 219 K/mm3 (142-424); Red Blood Count 5.05 M/mm3 (4.60-6.20); Red Cell Distribution Width-SD 38.0 fL; White Blood Count 7.1 K/mm3 (4.8-10.8)
[2024-11-12 08:17] LABS: Testosterone,Total 576 ng/dL (264-916)
== END 2024-11-11 23:59 | disposition home or self-care (01) ==
LOC: LAB 13:45
PROVIDERS: PCP Family Medicine; Visit Provider Urology
DX: N52.9 Male erectile dysfunction, unspecified (principal)
CPT/HCPCS: 36415; 84270; 84403; 85025

== ENCOUNTER 2024-12-10 13:01 | Outpatient (CLI) | payer BC, SELFPAY ==
--- OUTSIDE RECORDS SUMMARY | 2023-07-20 12:00 | XMS_ITS ---
[facility] Organization [facility] Address [address] [id number] Care Team Providers Care Granite Polisher Name Role Phone Deric Ang Primary Care Provider [phone] Irina Chou Unavailable [phone] Allergies No Known Allergies Results Component Value Reference Range Notes P-CBC with Diff plus Absolut e Counts Reviewed date:07/27/2023 08:13:30 AM Interpretation: Performing Lab: Notes/Report: Test performed by [facility] [address] [place] [address] , [address], [place] [address] Jelani Segovia MD, Campus Manager CLIA: [id number] WBC 7.1 3.8-11.5 K/uL Red Blood Cell Count (RBC) 4.88 4.20-5.70 M/mm 3 Hemoglobin (Hgb) 14.7 13.1-17.5 gm/dL Hematocrit (HCT) 42.5 39.0-51.0 % MCV 87.1 79.0-99.0 fL MCH 30.1 26.9-35.0 pg MCHC 34.6 30.4-34.8 g/dL RDW 40.5 38.2-53.0 fL Platelet Count 262 137-397 K/cumm Neutrophils Automated 57.8 41.0-77.0 % Lymphocytes Automated 30.8 14.0-48.0 % Monocytes Automated 7.6 4.0-13.0 % Eosinophils Automated 2.5 0.0-8.0 % Basophils Automated 0.7 0.0-1.5 % Immature Granulocyte Automated 0.6 0.0-1.0 % Absolute Neutrophil Count 4.1 2.0-8.2 K/uL Absolute Lymphocyte Count 2.2 0.9-3.6 K/uL Absolute Monocyte Count 0.5 0.3-1.0 K/uL Absolute Eosinophil Count 0.2 0.0-0.6 K/uL Absolute Basophil Count 0.1 0.0-0.1 K/uL Absolute Immature Granulocyte 0.04 0.00-0.03 K /uL P-Comprehensive Metabolic Pa flako (CMP) Reviewed date:07/27/2023 08:13:30 AM Interpretation:Normal Performing Lab: Notes/Report: Test performed by [facility] [address] [place] [address] , [address], [place] [address] Jelani Segovia MD, Campus Manager CLIA: [id number] Sodium 141 135-145 mEq/L Potassium 3.8 3.5-5.3 mEq/L Chloride 102 97-108 mEq/L CO2 24 22-32 mEq/L Glucose 91 65-99 mg/dL BUN 10 6-20 mg/dL Creatinine 1.01 0.70-1.30 mg/dL Calcium 10.2 8.6-10.4 mg/dL eGFR by Creatinine 104 >59 mL/min/1.73m2 Protein 7.5 6.0-8.3 g/dL Albumin 5.0 3.5-5.3 g/dL Alkaline Phosphatase 99 40-129 IU/L ALT (SGPT) 29 <5-55 IU/L AST (SGOT) 17 <5-46 IU/L Bilirubin, Total 0.3 <0.2-1.2 mg/dL A/G Ratio 2.0 1.1-2.5 mg/dL P-Testosterone, Free, Bioava ilable, and Total (Adult Male) Reviewed date:07/27/2023 08:13:30 AM Interpretation:testosterone total 254, shbg 11.5 Performing Lab: Notes/Report: Test performed by [facility] [address] [place] [address] , [address], [place] [address] Jelani Segovia MD, Campus Manager CLIA: [id number] Testosterone Total 254.00 264.00-916.00 ng/dL Sex Hormone Binding Globulin (SHBG) 11.5 16.5-55.9 nmol/L Free Testosterone, Percent 2.75 1.60-2.90 % Free Testosterone (calculation) 70 47-244 pg /mL Testosterone Bioavailable 189 131-682 ng/dL P-FSH and LH Reviewed date:07/27/2023 08:13:30 AM Interpretation:Normal Performing Lab: Notes/Report: Test performed by [facility] [address] [place] [address] [address], [place] [address] Jelani Segovia MD, Campus Manager CLIA: [id number] Luteinizing Hormone 5.80 LH Reference Range Men: 1.7 - 8.6 Women: Follicular phase 2.4 - 12.6 Ovulation phase 14.0 - 95.6 Luteal phase 1.0 - 11.4 Postmenopause 7.7 - 58.5 FSH 6.22 1.50-12.40 mIU/mL FSH Reference Range Men: 1.5 - 12.4 Women: Follicular phase 3.5 - 12.5 Ovulation phase 4.7 - 21.5 Luteal phase 1.7 - 7.7 Postmenopause 25.8 - 134.8 P-TSH Reviewed date:07/27/2023 08:13:30 AM Interpretation:Normal Performing Lab: Notes/Report: Test performed by [facility] [address] [place] [address] [address], [place] [address] Jelani Segovia MD, Campus Manager CLIA: [id number] TSH 1.57 0.43-5.25 mU/L REASON FOR VISIT discuss testosterone levels Medications Medication SIG (Take, Route, Frequency, Duration) Notes Start Date End Date Status Amitriptyline HCl 25 MG 1 or 2 tabs Oral ly At Bed Time prn 07/20/2023 Active DULoxetine HCl 30 MG 1 cap(s) orally onc e daily; Duration: 90 days 11/18/2020 Not-Taking Sildenafil Citrate 20 MG 2 orally as directed 05/04 Active QUEtiapine Fumarate 50 MG 1 tab(s) orall y at bedtime; Duration: 30 day(s) Active Social History Tobacco Use: Social History Observation Description Date Details (start date - stop date) Former Smoker NA - NA CURRENT TOBACCO USE: Question Answer Notes Are you a: former smoker Patient was a fo rmer smoker and started at age 13 and quit smoking 2 years ago. Patient states he does use vamping tobacco now Problems Problem Type SNOMED Code ICD Code Onset Dates Problem Status W/U Status Risk Notes Problem Insomnia (801129235) Insomnia (G47.00) Active confirmed Problem Testicular hypofunction (982928215) Hypotestosteronemia in male (E29.1) Active confirmed Vital Signs Blood pressure systolic 122 mm Hg 07/20/19 24 Blood pressure diastolic 80 mm Hg 024 Heart Rate 87 /min 07/20/2023 Height 63 in 07/20/2023 Weight 144.8 lbs 07/20/2023 BMI 25.65 kg/m2 07/20/2023 Encounters Encounter Location Date Provider Diagnosis [facility] [address] [place], [place] [id number] 07/20/2023 Irina Chou Insomnia G47.00 and Hypotestosteronemia in male E29.1 Assessments Encounter Date Diagnosis (ICD Code) Assessment Notes Treatment Notes Treatment Clinical Notes Section Notes 07/20/2023 Insomnia (ICD-10 - G47.00) 07/20/2023 Hypotestosteronemia in male (ICD-10 - E29.1) Plan to obtain additional labs prior to initiating treatment with testosterone. Plan Of Treatment Medication Medication Name Sig Start Date Stop Date Notes Amitriptyline HCl 25 MG 1 or 2 tabs Orally At Bed Time prn 07/20/2023 Treatment Notes Assessment Notes Hypotestosteronemia in male Plan to obta in additional labs prior to initiating treatment with testosterone. Next Appt Details Follow Up: office visit afte r tests completed, Reason: Progress Notes * MISHA MARITZAFELIXOB:1995 ([age] yo M)Acc No.[id number]:07/20/2023 Progress Notes Patient: DIOGO AREVALO Provider: Irina Chou M.D. :1995 A ge:28 Y S ex:Male Date:07/20/2023 Address:[address] [place] [address], [place] [id number] Pcp:Deric Ang Subjective: * Chief Complaints: * 1 . Discuss testosterone levels. * HPI: M lakeisha Reproductive: Presents with concerns for erectile dysfunction and low testosterone.Diogo this has been an issue for a few years. He has seen Dr. Lowery and tried PDE 5 inhibitors which were not effective. He had a testosterone level in 2020 that was normal. The erectile dysfunction is causing some marital problems More recently he subscribed to an online service to treat his erectile dysfunction. He had repeat blood work and brings a copy showing his testosterone level 241. He is interested in testosterone replacement but does not want to go through the online service as his cost will be poo-li-yvyzvt. G astroenterology: c/o Heartburn P t would like to discuss starting a medication for GERD. Pt sts that he has been having some heartburn lately. 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 His main concern is insomnia and has been having more difficulty sleeping since weaning the Seroquel. * ROS: D ERMATOLOGY: no R macario. n o H lisa. G ASTROENTEROLOGY: no N ausea. n o V omiting. U ROLOGY: no D ifficulty urinating. n o B lood in urine. * Medical History: A llergies, Depression, Anxiety, Insomnia , ED. * Hospitalization/Major Diagno stic Procedure: [facility]- boil on genital area . * Family History: F ather: alive, hypertension, hyperlipidemia. M other: alive, depression, bipolar, alcohol abuse. P aternal Grand Father: alive, heart disease. P aternal Grand Mother: alive, diabetes, heart disease. M aternal Grand Father: alive, heart disease. M aternal Grand Mother: alive, heart disease, diabetes. 1 brother(s) . . Brother- asthma and heart murmur. * Social History: C URRENT TOBACCO USE: Yes A re you a: f ormer smoker Patient was a former smoker and started at age 13 and quit smoking 2 years ago. Patient states he does use vamping tobacco now. C affeine: yes, frequency: Patient drinks 3 cups of soft drinks per day. Alcohol: yes, Patient states he does drink socially. * Medications: T aking QUEtiapine Fumarate 50 MG Tablet 1 tab(s) orally at bedtime , Taking Sildenafil Citrate 20 MG Tablet 2 orally as directed , Not-Taking DULoxetine HCl 30 MG Capsule Delayed Release Particles 1 cap(s) orally once daily , Medication List reviewed and reconciled with the patient * Allergies: N .K.D.A. Objective: * Vitals: W t:144.8, Temp:98.7, BP:122/80, HR:87, O2 Sat:98% on RA, Nurse:MANOJ, Ht: 63, BMI:25.65. Assessment: * Assessment: 1. I nsomnia - G47.00 (Primary) 2 . H ypotestosteronemia in male - E29.1? Plan: * Treatment: Value Reference Range A bsolute Basophil Count 0.1 0.0-0.1 - K/uL * A bsolute Eosinophil Count 0.2 0.0-0.6 - K/uL * A bsolute Immature Granulocyte 0.04 H 0.00-0.03 - K/uL * A bsolute Lymphocyte Count 2.2 0.9-3.6 - K/uL * A bsolute Monocyte Count 0.5 0.3-1.0 - K/uL * A bsolute Neutrophil Count 4.1 2.0-8.2 - K/uL * B asophils Automated 0.7 0.0-1.5 - % * E osinophils Automated 2.5 0.0-8.0 - % * H ematocrit (HCT) 42.5 39.0-51.0 - % * H emoglobin (Hgb) 14.7 13.1-17.5 - gm/dL * I mmature Granulocyte Automated 0.6 0.0-1.0 - % * L ymphocytes Automated 30.8 14.0-48.0 - % * M CH 30.1 26.9-35.0 - pg * M CHC 34.6 30.4-34.8 - g/dL * M CV 87.1 79.0-99.0 - fL * M onocytes Automated 7.6 4.0-13.0 - % * P latelet Count 262 137-397 - K/cumm * R ed Blood Cell Count (RBC) 4.88 4.20-5.70 - M/ mm3 * R DW 40.5 38.2-53.0 - fL * N eutrophils Automated 57.8 41.0-77.0 - % * W BC 7.1 3.8-11.5 - K/uL * Irina Chou 07/27/2023 8 :13:12 AM >See phone encounter ?LAB: P-Comprehensive Metabolic Panel (CMP) (Collection Date & Time - 07/20/2023 04:15 PM)?Normal* Value Reference Range A /G Ratio 2.0 1.1-2.5 - mg/dL * A lbumin 5.0 3.5-5.3 - g/dL * A lkaline Phosphatase 99 40-129 - IU/L * A LT (SGPT) 29 <5-55 - IU/L * A ST (SGOT) 17 <5-46 - IU/L * B ilirubin, Total 0.3 <0.2-1.2 - mg/dL * B UN 10 6-20 - mg/dL * C alcium 10.2 8.6-10.4 - mg/dL * C hloride 102 97-108 - mEq/L * C O2 24 22-32 - mEq/L * C reatinine 1.01 0.70-1.30 - mg/dL * G lucose 91 65-99 - mg/dL * P otassium 3.8 3.5-5.3 - mEq/L * S odium 141 135-145 - mEq/L * P rotein 7.5 6.0-8.3 - g/dL * e GFR by Creatinine 104 >59 - mL/min/1.73m2 * Irina Chou 07/27/2023 8 :13:12 AM >See phone encounter 2.?Hypotestosteronemia in male?LAB: P-CBC with Diff plus Absolute Counts (Collection Date & Time - 07/20/2023 04:15 PM)* Value Reference Range A bsolute Basophil Count 0.1 0.0-0.1 - K/uL * A bsolute Eosinophil Count 0.2 0.0-0.6 - K/uL * A bsolute Immature Granulocyte 0.04 H 0.00-0.03 - K/uL * A bsolute Lymphocyte Count 2.2 0.9-3.6 - K/uL * A bsolute Monocyte Count 0.5 0.3-1.0 - K/uL * A bsolute Neutrophil Count 4.1 2.0-8.2 - K/uL * B asophils Automated 0.7 0.0-1.5 - % * E osinophils Automated 2.5 0.0-8.0 - % * H ematocrit (HCT) 42.5 39.0-51.0 - % * H emoglobin (Hgb) 14.7 13.1-17.5 - gm/dL * I mmature Granulocyte Automated 0.6 0.0-1.0 - % * L ymphocytes Automated 30.8 14.0-48.0 - % * M CH 30.1 26.9-35.0 - pg * M CHC 34.6 30.4-34.8 - g/dL * M CV 87.1 79.0-99.0 - fL * M onocytes Automated 7.6 4.0-13.0 - % * P latelet Count 262 137-397 - K/cumm * R ed Blood Cell Count (RBC) 4.88 4.20-5.70 - M/ mm3 * R DW 40.5 38.2-53.0 - fL * N eutrophils Automated 57.8 41.0-77.0 - % * W BC 7.1 3.8-11.5 - K/uL * Irina Chou 07/27/2023 8 :13:12 AM >See phone encounter ?LAB: P-Comprehensive Metabolic Panel (CMP) (Collection Date & Time - 07/20/2023 04:15 PM)?Normal* Value Reference Range A /G Ratio 2.0 1.1-2.5 - mg/dL * A lbumin 5.0 3.5-5.3 - g/dL * A lkaline Phosphatase 99 40-129 - IU/L * A LT (SGPT) 29 <5-55 - IU/L * A ST (SGOT) 17 <5-46 - IU/L * B ilirubin, Total 0.3 <0.2-1.2 - mg/dL * B UN 10 6-20 - mg/dL * C alcium 10.2 8.6-10.4 - mg/dL * C hloride 102 97-108 - mEq/L * C O2 24 22-32 - mEq/L * C reatinine 1.01 0.70-1.30 - mg/dL * G lucose 91 65-99 - mg/dL * P otassium 3.8 3.5-5.3 - mEq/L * S odium 141 135-145 - mEq/L * P rotein 7.5 6.0-8.3 - g/dL * e GFR by Creatinine 104 >59 - mL/min/1.73m2 * Irina Chou 07/27/2023 8 :13:12 AM >See phone encounter ?LAB: P-Testosterone, Free, Bioavailable, and Total (Adult Male) (Collection Date & Time - 07/20/2023 04:15 PM)?testosterone total 254, shbg 11.5* Value Reference Range F ree Testosterone, Percent 2.75 1.60-2.90 - % * S ex Hormone Binding Globulin (SHBG) 11.5 L 16.5- 55.9 - nmol/L * T estosterone Total (Adult Male) 254.00 L 264.00-91 6.00 - ng/dL * T estosterone Bioavailable 189 131-682 - ng/dL * F ree Testosterone (calculation) 70 47-244 - pg/mL * Irina Chou 07/27/2023 8 :13:12 AM >See phone encounter ?LAB: P-FSH and LH (Collection Date & Time - 07/20/2023 04:15 PM)?Normal* Value Reference Range F SH 6.22 1.50-12.40 - mIU/mL * L uteinizing Hormone 5.80 - mIU/mL * Irina Chou 07/27/2023 8 :13:12 AM >See phone encounter ?LAB: P-TSH (Collection Date & Time - 07/20/2023 04:15 PM)?Normal* Value Reference Range T SH 1.57 0.43-5.25 - mU/L * Irina Chou 07/27/2023 8 :13:12 AM >See phone encounter Notes: Plan to obtain additional labs prior to initiating treatment with testosterone.?? * Procedure Codes: 9 4760 PULSE OX * Follow Up: o ffice visit after tests completed * Images: Billing Information: * Visit Code: 22493 Office Visit, Est Pt., Level 3. * Procedure Codes: 79309 PULSE OX. * Electronic signature of Irina Chou MD on 12/11/2024 at 10:37 AM EDT Sign off status: Pending * Provider: Irina Chou M.D. Date: 0 07/20/2023 Generated for Victor M meek/Lizbeth/eTransmitting on: 0 12/11/2024 10:37 AM EDT History and Physical Notes * HPI (History of Present Illness) Category Sub-Category Detail Notes Category Not es Gastroenterology Heartburn Pt would like t o discuss starting a medication for GERD. Pt sts that he has been having some heartburn lately
--- OUTSIDE RECORDS SUMMARY | 2023-09-26 10:05 | XMS_ITS ---
Author Organization [facility] Address [address] [place] [id number] Care Team Providers Care Trial Examiner Name Role Phone Deric Ang Primary Care Provider Irina Chou [phone] Allergies No Known Allergies REASON FOR VISIT [...] [address] [place] [id number] 09/26/2023 Irina Chou Insomnia G47.00 ; Hypotestosteronemia [...] Reason: Progress Notes * REGAN CABRALOB:1995 ([age] yo M)Acc No.[id number]:09/26/2023 Progress Notes Patient: DIOGO AREVALO Provider: Irina Chou M.D. :1995 A ge:28 Y S ex:Male Date:09/26/2023 Address:[address] [place] [address], [id number] Pcp:Deric Ang Subjective: * Chief Complaints: [...] * Images: Billing Information: * Visit Code: 91511 Office Visit, Est Pt., Level 3. * Procedure Codes: * Electronic signature of Irina Chou MD on 12/11/2024 at 10:37 AM EDT Sign off status: Pending * Provider: Irina Chou M.D. Date: 0 09/26/2023 Generated for Victor M meek/Lizbeth/Robertitting on: 0 12/11/2024 10:37 AM EDT History and Physical Notes * HPI (History of Present Illness) Category Sub-Category Detail Notes Category Not es HPI Patient is here today for a 2 mo [facility] check up. Pt sts that he is not currently taking the Testosterone. Pt sts that he has no new concerns or complaints at this time Examination Category Sub-Category Detail Notes Category Not es General Examination HEENT: mild nasal congestion o/w normal Heart: RSR Lungs: clear to auscultatio n General Appearance: NAD
[2024-12-10 14:57] LABS: Influenza A, PCR Not Detected (NotDetected); Influenza B, PCR Not Detected (NotDetected)
[2024-12-10 16:37] LABS: Coronavirus 19, PCR Detected (NotDetected)
--- OUTSIDE RECORDS SUMMARY | 2024-12-11 10:38 | XMS_ITS | Clinical Summary ---
Author Organization [facility] Address [address] [place] [address] Phone Care Team Providers Care Marketing Operations Intern Name Role Phone Nonstaff, Referring Primary Care Provider Unavai lable Allergies No known active allergies Medications DULoxetine (CYMBALTA) 30 mg Oral Capsule, Delayed Release(E.C.) Take by mouth daily. Active Medical History Medical History Date Comments Depression Family History Medical History Relation Name Comments Seizures Mother Relation Name Status Comments Mother Social History Tobacco Use Types Packs/Day Years Used Date Smoking Tobacco: Never Assessed Alcohol Use Standard Drinks/Week Comments Yes 0 (1 standard drink = 0.6 oz pur e alcohol) 6-7 beers monthly Sex and Gender Information Value Date Recorded Sex Assigned at Not on file Legal Sex Male 2:12 PM EDT Gender Identity Not on file Sexual Orientation Not on file Obstetrics History Last Filed Vital Signs Vital Sign Reading Time Taken Comments Blood Pressure 108/70 04/29/2023 3:11 PM EST Pulse 72 04/29/2023 1:10 PM EST Temperature 36.2 C (97.2 F) 04/29/2023 1:10 PM EST Respiratory Rate 19 04/29/2023 1:10 PM EST Oxygen Saturation 100% 04/29/2023 1:10 PM EST Inhaled Oxygen Concentration - - Weight 65.8 kg (145 lb) 04/29/2023 1:10 PM EST Height 157.5 cm (5' 2 ) 04/29/2023 1:10 PM EST Body Mass Index 26.52 04/29/2023 1:10 PM EST Plan of Treatment Health Maintenance Due Date Last Done Comments Hepatitis B Vaccine (3 of 3 - 3-dose series) 04/14/1997 02/17/1997, 1996 Annual Wellness Exam 02/15/1999 DTaP/TDaP/Td (7 - Td or Tdap) 11/19/2017 11/20/2007, 07/24/2000, 10/06/1997, Additional history exists COVID-19 Vaccine (2023- season) 2024 Influenza Vaccine (#1) 2024 Meningococcal B Vaccine Aged Out No l onger eligible based on patient's age to complete this topic Pneumococcal Vaccine 0-49 Aged Out No longer eligible based on patient's age to complete this topic [place] [address] [address] [place] [address] PPO Care Teams Marketing Operations Intern Relationship Specialty Start Date End Date Nonstaff, Referring PCP - General 04/29/23
--- OUTSIDE RECORDS SUMMARY | 2024-12-11 10:38 | XMS_ITS | Patient Health Record ---
Author Organization [facility] Address [address] [place] [id number] Care Team Providers Care Lab Tester Name Role Phone Deric Ang Primary Care Provider [phone] Allergies No Known Allergies Reason For Referral No Information Medications Medication SIG (Take, Route, Frequency, Duration) [...] 1 tablet Orally Once a day Active Immunizations Vaccine Route Administration Date Status Comme nts HEPB VACC PED/ADOL DOSE IM Unknown 1996 Administe red HEPB VACC PED/ADOL DOSE IM Unknown 02/17/1997 Administe red IPV Unknown 07/24/2000 Administered IPV Unknown 07/24/2000 Administered MMR Unknown 10/06/1997 Administered MMR Unknown 07/24/2000 Administered Tetanus Tdap-Adacel (over 7yrs) Unknown 11/20/2007 Admi nistered Tetanus Tdap-Adacel (over 7yrs) Unknown 11/20/2007 Admi nistered Varivax Unknown 10/06/1997 Administered Social History Tobacco Use: Social History Observation [...] Status W/U Status Risk Notes Problem Insomnia (045629054) Insomnia (G47.00) Active confirmed Problem Mixed anxiety and depressive disorder (205844668) Depression with anxiety (F41.8) Active confirmed Problem Pulmonary nodule (780038194) Pulmonary nodule (R91.1) Active confirmed Problem Erectile dysfunction (disorder) (072691384) Erectile dysfunction, unspecified erectile dysfunction type (N52.9) Active confirmed Problem Insomnia (662254568) 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) Active confirmed Problem Low testosterone (046310672) Low testosterone (R79.89) Active confirmed Problem Testicular hypofunction (295387364) Hypotestosteronemia in male (E29.1) Active confirmed Plan Of Treatment Pending Test Test Name Order Date TSH 11/18/2020 CMP 11/18/2020 CBC 11/18/2020 Insurance Providers Payer Name Payer Address Payer Phone Subscriber Number Group Number Insured Name Patient Relationship to Insured Coverage Start Date Coverage End Date [employer]IA [employer]D [employer] [address] [place] [address] [id number] [employer] Self - patient is the insured Medical (General) History Medical History History ICD Code allergies depression anxiety Insomnia ED Hypotestosteronism Surgical History Surgery Date(Month/Year) Hospitalization History Reason Date(Month/Year) [facility] ER- boil on genital area
== END 2024-12-10 23:59 | disposition home or self-care (01) ==
LOC: LAB.DROPOF 12-11 10:30
PROVIDERS: PCP Nurse Practitioner; Visit Provider Nurse Practitioner
DX: J06.9 Acute upper respiratory infection, unspecified (principal)
CPT/HCPCS: 87631

== ENCOUNTER 2025-02-17 10:32 | Outpatient (CLI) | payer BC, SELFPAY ==
[2025-02-17 10:36] LABS: Microscopic, Urine URINE MICROSCOPIC (MICROSCOPIC)
[2025-02-17 10:55] LABS: Hematocrit 45.2 % (42.0-52.0); Hemoglobin 15.9 g/dL (14.1-18.0); Mean Corpuscular HGB Conc 35.2 g/dL (31.8-35.4); Mean Corpuscular Hemoglobin 30.3 pg (27.0-31.2); Mean Corpuscular Volume 86.3 fl (80-94); Nucleated Red Blood Cells % 0 %; Platelet Count 243 K/mm3 (142-424); Red Blood Count 5.24 M/mm3 (4.60-6.20); Red Cell Distribution Width-SD 36.8 fL; White Blood Count 6.1 K/mm3 (4.8-10.8)
[2025-02-17 11:26] LABS: Iron 122 ug/dL (49-181)
[2025-02-17 11:36] LABS: Total Iron Binding Capacity 287 ug/dL (261-462)
[2025-02-17 11:41] LABS: Free T4 (Free Thyroxine) 1.13 ng/dl (0.78-2.19)
[2025-02-17 11:52] LABS: Bilirubin,Urine Negative (Negative); Color,Urine YELLOW (Yellow); Glucose,Urine (UA) Negative (Negative); Ketones,Urine Negative (Negative); Leukocyte Esterase,Urine Negative (Negative); PH,Urine 6.0 (5.0-8.5); Protein,Urine Negative (Negative); Specific Gravity, Urine 1.025 (1.005-1.030); Urobilinogen,Urine 0.2 EU/dl (0.2)
[2025-02-17 11:57] LABS: Thyroid Stimulating Hormone 1.91 uIU/mL (0.465-4.68)
[2025-02-17 12:01] LABS: Ferritin 91.2 ng/ml (17.9-464)
[2025-02-17 12:46] LABS: Bacteria,Urine Trace /lpf; RBC,Urine Occasional #/hpf (0-3); Squamous Epithelial Cell,Urine Occasional #/hpf (0-5); WBC,Urine Occasional #/hpf (0-3)
[2025-02-18 08:20] LABS: FSH 3.1 mIU/mL (1.5-12.4); LH 3.8 mIU/mL (1.7-8.6); Transferrin 255 mg/dL (177-329)
== END 2025-02-17 23:59 | disposition home or self-care (01) ==
LOC: LAB 10:33
PROVIDERS: PCP Family Medicine; Visit Provider Student in an Organized Health Care Education/Training Program
DX: E29.1 Testicular hypofunction (principal)
CPT/HCPCS: 36415; 81001; 82728; 83001; 83002; 83540; 83550; 84146; 84270; 84402; 84403; 84439; 84443; 84466; 85027

== ENCOUNTER 2025-03-24 09:14 | Outpatient (CLI) | payer BC, SELFPAY ==
--- OUTSIDE RECORDS SUMMARY | 2023-09-26 09:05 | XMS_ITS ---
Author Organization [facility] Address [address] [place] [id number] Care Team Providers Care E Commerce Strategist Name Role Phone Deric Ang Primary Care Provider Irina Chou [phone] Allergies No Known Allergies REASON FOR VISIT 2 Month Check Up Medications Medication SIG (Take, Route, Frequency, Duration) Notes Start Date End Date Status DULoxetine HCl 30 MG 1 cap(s) orally onc e daily; Duration: 90 days 11/18/2020 Not-Taking Testosterone 1.62 % 2 pumps to skin in t he morning to shoulder, upper arms or abdomen Transdermal Once a day 07/26/2023 Not-Takin g Amitriptyline HCl 25 MG TAKE 1 TO 2 TABL ETS BY MOUTH AT BEDTIME NEEDED; Duration: 15 Not-Taking Sildenafil Citrate 20 MG 2 orally as directed 05/04 Not-Taking Omeprazole 40 MG 1 capsule 30 minutes before morning meal Orally Once a day; Duration: 30 day(s) Active QUEtiapine Fumarate 50 MG 1 tab(s) orall y at bedtime Active Tadalafil 5 MG 1 tablet Orally Once a day Active Social History Tobacco Use: Social History Observation Description Date Details (start date - stop date) Former Smoker NA - NA CURRENT TOBACCO USE: Question Answer Notes Are you a: former smoker Patient was a fo rmer smoker and started at age 13 and quit smoking 2 years ago. Patient states he does use vamping tobacco now Vital Signs Blood pressure systolic 114 mm Hg 09/26/19 24 Blood pressure diastolic 72 mm Hg 024 Heart Rate 88 /min 09/26/2023 Height 63 in 09/26/2023 Weight 147.4 lbs 09/26/2023 BMI 26.11 kg/m2 09/26/2023 Encounters Encounter Location Date Provider Diagnosis [facility] [address] [place] [id number] 09/26/2023 Irina Chou Insomnia G47.00 ; Hypotestosteronemia in male E29.1 and Erectile dysfunction, unspecified erectile dysfunction type N52.9 Assessments Encounter Date Diagnosis (ICD Code) Assessment Notes Treatment Notes Treatment Clinical Notes Section Notes 09/26/2023 Insomnia (ICD-10 - G47.00) 09/26/2023 Hypotestosteronemia in male (ICD-10 - E29.1) f/u with Dr. Middleton as scheduled 09/26/2023 Erectile dysfunction , unspecified erectile dysfunction type (ICD-10 - N52.9) Plan Of Treatment Medication Medication Name Sig Start Date Stop Date Notes QUEtiapine Fumarate 50 MG 1 tab(s) orally at bedtime Amitriptyline HCl 25 MG 1 or 2 tabs Oral ly At Bed Time prn Tadalafil 5 MG 1 tablet Orally Once a day Treatment Notes Assessment Notes Hypotestosteronemia in male f/u with Dr. Middleton as scheduled Next Appt Details Follow Up: prn, Reason: Progress Notes * REGAN CABRALOB:1995 ([age] yo M)Acc No.[id number]:09/26/2023 Progress Notes Patient: DIOGO AREVALO Provider: Irina Chou M.D. :1995 A ge:28 Y S ex:Male Date:09/26/2023 Address:[address] [place] [address], [id number] Pcp:Deric Ang Subjective: * Chief Complaints: * 1 . 2 Month Check Up. * HPI: H PI: Patient is here today for a 2 month check up. Pt sts that he is not currently taking the Testosterone. Pt sts that he has no new concerns or complaints at this time. * ROS: D ERMATOLOGY: no R macario. n o H lisa. G ASTROENTEROLOGY: no N ausea. n o V omiting. U ROLOGY: no D ifficulty urinating. n o B lood in urine. * Medical History: A llergies, Depression, Anxiety, Insomnia , ED, Hypotestosteronism. * Hospitalization/Major Diagno stic Procedure: H MH [...] does drink socially. * Medications: T aking Omeprazole 40 MG Capsule Delayed Release 1 capsule 30 minutes before morning meal Orally Once a day , Taking Tadalafil 5 MG Tablet 1 tablet Orally Once a day , Taking QUEtiapine Fumarate 50 MG Tablet 1 tab(s) orally at bedtime , Not-Taking Sildenafil Citrate 20 MG Tablet 2 orally as directed , Not-Taking Amitriptyline HCl 25 MG Tablet TAKE 1 TO 2 TABLETS BY MOUTH AT BEDTIME NEEDED , Not-Taking Testosterone 1.62 % Gel 2 pumps to skin in the morning to shoulder, upper arms or abdomen Transdermal Once a day , Not-Taking DULoxetine HCl 30 MG Capsule Delayed Release Particles 1 cap(s) orally once daily , Medication List reviewed and reconciled with the patient * Allergies: N .K.D.A. Objective: * Vitals: W t:147.4, Temp:97.8, BP:114/72, HR:88, Nurse:MANOJ, Ht: 63, BMI:26.11. * Examination: G eneral Examination: General Appearance: N AD. H EENT: mild nasal congestion o/w normal. H eart: R SR. L ungs: c lear to auscultation. ? Assessment: * Assessment: 1. I nsomnia - G47.00 (Primary) 2 . H ypotestosteronemia in male - E29.1? 3. E rectile dysfunction, unspecified erectile dysfunction type - N52.9 ? Plan: * Treatment: 2. H ypotestosteronemia in male Notes: f/u with Dr. Middleton as scheduled 3. E rectile dysfunction, unspecified erectile dysfunction type Continue Tadalafil Tablet, 5 MG, 1 tablet, Orally, Once a day. * Follow Up: p rn * Images: Billing Information: * Visit Code: 73629 Office Visit, Est Pt., Level 3. * Procedure Codes: * Electronic signature of Irina Chou MD on 03/24/2025 at 09:18 AM EST Sign off status: Pending * Provider: Irina Chou M.D. Date: 0 09/26/2023 Generated for Victor M meek/Lizbeth/Robertitting on: 1 05/25/2024 09:18 AM EST History and Physical Notes * HPI (History of Present Illness) Category Sub-Category Detail Notes Category Not es HPI Patient is here today for a 2 mo [facility] check up. Pt sts that he is not currently taking the Testosterone. Pt sts that he has no new concerns or complaints at this time Examination Category Sub-Category Detail Notes Category Not es General Examination HEENT: mild nasal congestion o/w normal Heart: RSR Lungs: clear to auscultatio n General Appearance: NAD
--- NOTE | 2025-03-24 09:15 | XR_ITS ---
FINAL REPORT CLINICAL HISTORY: evaluate low bone mass COMPARISON: None FINDINGS: Using L1-4, the bone mineral density of the spine is 0.896 g/cm2, corresponding to T-score of -1.8. Using the left hip, the bone mineral density of the femoral neck is 0.640 g/cm2, corresponding to a T-score of -2.1. Using the right hip, the bone mineral density of the femoral neck is 0.615 g/cm2, corresponding to a T-score of -2.3. NOTE: T-score: Standard deviation compared with peak bone mass of young adult mean. *Following the recommendations of the International Society of Bone densitometry, classification of hip BMD is based on the lower of two T-scores; total hip or femoral neck. IMPRESSION: Diminished bone mineral density of the lumbar spine and the bilateral hips consistent with osteopenia. Reviewed, Interpreted and Dictated by Tarsha Cardona MD Transcribed by Savi Mahmood Authenticated and [facility]
--- OUTSIDE RECORDS SUMMARY | 2025-03-24 09:18 | XMS_ITS | Clinical Summary ---
Author Organization [employer] ([place], [place], [place], [place], [place]) Address [address] [place] [address] Care Team Providers Care Analyst Programmer Name Role Phone Unavailable Primary Care Provider Unavailabl e Encounters Date Type Department Care Team Description 01/08/2025 Telephone [facility] Primary Care - [facility] [address] [place] [address] Vinicius Corona MD GENERAL MESSAGE from Last 3 Months Social History Tobacco Use Types Packs/Day Years Used Date Smoking Tobacco: Never Assessed Sex and Gender Information Value Date Recorded Sex Assigned at Not on file Legal Sex Male 9:19 AM CDT Gender Identity Not on file Sexual Orientation Not on file Plan of Treatment Health Maintenance Due Date Last Done Comments Depression Screening (12+) 2008 Tobacco Cessation Counseling and Screening (12+) 2008 HIV Screening 02/15/2011 Hepatitis C Screening 02/15/2014 DTAP/TDAP/TD VACCINES (1 - Tdap) 02/15/2015 COVID-19 VACCINE (2023-2 5 season) 2024 Influenza Vaccine (#1) 2024 Pneumococcal Vaccine: 0-49 Years Aged Out No longer eligible based on patient's age to complete this topic
--- OUTSIDE RECORDS SUMMARY | 2025-03-24 09:18 | XMS_ITS | Encounter Summary ---
Author Organization [employer] ([place], [place], [place], [place], [place]) Address [address] [place] [address] Care Team Providers Care Grants Director Name Role Phone Unavailable Primary Care Provider Unavailabl e Reason for Visit * Reason Onset Date Comments GENERAL MESSAGE 01/08/2025 Encounter Details Date Type Department Care Team (Late st Contact Info) Description 01/08/2025 Telephone [facility] Primary Care - [facility] [address] [place] [address] Vinicius Song MD [address] [place] [address] GENERAL MESSAGE Social History Tobacco Use Types Packs/Day Years Used Date Smoking Tobacco: Never Assessed Sex and Gender Information Value Date Recorded Sex Assigned at Not on file Legal Sex Male 9:19 AM CDT Gender Identity Not on file Sexual Orientation Not on file documented as of this encounter Miscellaneous Notes * Telephone Encounter - Bot EST [employer] Marybeth - 01/08/2025 10:28 AM EDT FROM: Acacia Collins TO: [facility] 7 TRACK LABORER STAFF [[id number]] SUBJECT: General Message PROVIDER: VINICIUS SONG [[id number]] DEPARTMENT: [facility] [[id number]] ENCOUNTER REASON FOR CALL: GENERAL MESSAGE ENCOUNTER TYPE: Telephone LAST VISIT DATE IS NOT APPLICABLE: Yes NEXT VISIT DATE IS NOT APPLICABLE: Yes WHAT'S THE PATIENT'S MESSAGE? 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 Yes MESSAGE PRIORITY: Routine CALLER'S NAME: Karan Gerald RELATION TO PATIENT: Self [1] PREFERRED LANGUAGE: Chilean BEST CALL BACK PHONE NUMBER: Home Phone: ([phone]) WHAT IS THE BEST WAY FOR THE OFFICE TO CONTACT YOU?: OK to leave message on voicemail documented in this encounter Plan of Treatment Not on file documented as of this encounter Visit Diagnoses Not on filedocumented in this encounter
--- OUTSIDE RECORDS SUMMARY | 2025-03-24 09:18 | XMS_ITS | Patient Health Record ---
Author Organization [facility] Address [address] [place] [id number] Care Team Providers Care Wallpaper Installer Name Role Phone Deric Ang Primary Care Provider Allergies No Known Allergies Reason For Referral [...] Status W/U Status Risk Notes Problem Insomnia (229998007) Insomnia (G47.00) Active confirmed Problem Mixed anxiety and depressive disorder (411701565) Depression with anxiety (F41.8) Active confirmed Problem Pulmonary nodule (534792285) Pulmonary nodule (R91.1) Active confirmed Problem Erectile dysfunction (disorder) (613675795) Erectile dysfunction, unspecified erectile dysfunction type (N52.9) Active confirmed Problem Insomnia (947657456) 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) Active confirmed Problem Low testosterone (006169722) Low testosterone (R79.89) Active confirmed Problem Testicular hypofunction (727686860) Hypotestosteronemia in male (E29.1) Active confirmed Plan Of Treatment Pending Test Test Name Order Date TSH 11/18/2020 CMP 11/18/2020 CBC 11/18/2020 Insurance Providers Payer Name Payer Address Payer Phone Subscriber Number Group Number Insured Name Patient Relationship to Insured Coverage Start Date Coverage End Date [employer]IA [employer]D [employer] [address] [place] [address] [phone] [id number] D[employer] Self - patient is the insured Medical (General) History Medical History History ICD Code allergies depression anxiety Insomnia ED Hypotestosteronism Surgical History Surgery Date(Month/Year) Hospitalization History Reason Date(Month/Year) [facility] ER- boil on genital area
--- OUTSIDE RECORDS SUMMARY | 2025-03-24 09:18 | XMS_ITS | Clinical Summary ---
Author Organization [facility] Address [address] [place] [address] Phone Care Team Providers Care Oil Truck Driver Name Role Phone Nonstaff, Referring Primary Care [...] on file Sexual Orientation Not on file Last Filed Vital Signs Vital Sign Reading [...] 07/24/2000, 10/06/1997, Additional history exists COVID-19 Vaccine (2024- season) 2024 Influenza Vaccine (#1) 2024 Meningococcal B Vaccine Aged Out No l onger eligible based on patient's age to complete this topic Pneumococcal Vaccine 0-49 Aged Out No longer eligible based on patient's age to complete this topic Insurance YESSENIA PPO Care Teams Oil Truck Driver Relationship Specialty Start Date End Date Nonstaff, Referring PCP - General 04/29/23
--- OUTSIDE RECORDS SUMMARY | 2025-03-24 09:18 | XMS_ITS | Referral Summary ---
Author Organization [employer] ([place], [place], [place], [place], [place]) Address [address] [place] [address] Care Team Providers Care Bowling Ball Mold Assembler Name Role Phone Unavailable Primary Care Provider Unavailabl e Encounters Date Type Department Care Team Description 01/08/2025 Telephone [facility] Primary Care - [facility] [address] [place] [address] Vinicius Corona MD GENERAL MESSAGE from Last 3 Months Social History Tobacco Use Types Packs/Day Years Used Date Smoking Tobacco: Never Assessed Sex and Gender Information Value Date Recorded Sex Assigned at Not on file Legal Sex Male 9:19 AM CDT Gender Identity Not on file Sexual Orientation Not on file Plan of Treatment Not on file
== END 2025-03-24 23:59 ==
LOC: RAD 09:15
PROVIDERS: PCP Family Medicine; Visit Provider Student in an Organized Health Care Education/Training Program
DX: E29.1 Testicular hypofunction (principal); M85.88 Other specified disorders of bone density and structure, other site
CPT/HCPCS: 77080

== ENCOUNTER 2025-03-31 13:45 | Outpatient (CLI) | payer BC, SELFPAY ==
--- OUTSIDE RECORDS SUMMARY | 2025-03-31 13:48 | XMS_ITS | Patient Health Record ---
Author Organization [facility] Address [address] [place] Salgado [id number] Care Team Providers Care Lens Assorter Name Role Phone Deric Ang Primary Care Provider [phone] Allergies No Known Allergies Reason For Referral [...] Status W/U Status Risk Notes Problem Insomnia (963700466) Insomnia (G47.00) Active confirmed Problem Mixed anxiety and depressive disorder (204659643) Depression with anxiety (F41.8) Active confirmed Problem Pulmonary nodule (322358555) Pulmonary nodule (R91.1) Active confirmed Problem Erectile dysfunction (disorder) (362895820) Erectile dysfunction, unspecified erectile dysfunction type (N52.9) Active confirmed Problem Insomnia (689388040) 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) Active confirmed Problem Low testosterone (214765764) Low testosterone (R79.89) Active confirmed Problem Testicular hypofunction (228650902) Hypotestosteronemia in male (E29.1) Active confirmed Plan Of Treatment Pending Test Test Name Order Date TSH 11/18/2020 CMP 11/18/2020 CBC 11/18/2020 Insurance Providers Payer Name Payer Address Payer Phone Subscriber Number Group Number Insured Name Patient Relationship to Insured Coverage Start Date Coverage End Date [employer] [address] [place] [address] [id number] [employer] Self - patient is the insured Medical (General) History Medical History History ICD Code allergies depression anxiety Insomnia ED Hypotestosteronism Surgical History Surgery Date(Month/Year) Hospitalization History Reason Date(Month/Year) [facility] ER- boil on genital area
--- OUTSIDE RECORDS SUMMARY | 2025-03-31 13:48 | XMS_ITS | Clinical Summary ---
Author Organization [employer] ([place], [place], [place], [place], [place]) Address [address] [place] [address] Care Team Providers Care [place] Working Supervisor Name Role Phone Unavailable Primary Care Provider Unavailabl e Encounters Date Type Department Care Team Description 01/08/2025 Telephone [facility] Primary Care - [facility] [address] [place] [address] Vinicius Corona MD GENERAL MESSAGE [...]
--- OUTSIDE RECORDS SUMMARY | 2025-03-31 13:48 | XMS_ITS | Referral Summary ---
Author Organization [employer] ([place], [place], [place], [place], [place]) Address [address] [place] [address] Care Team Providers Care Power Operator Name Role Phone Unavailable Primary Care Provider Unavailabl e Encounters Date Type Department Care Team Description 01/08/2025 Telephone [facility] Primary Care - [facility] [address] [place] [address] Vinicius Corona MD GENERAL MESSAGE [...]
--- OUTSIDE RECORDS SUMMARY | 2025-03-31 13:48 | XMS_ITS | Clinical Summary ---
Author Organization [facility] Address [address] [place] [address] Phone Care Team Providers Care Solutions Architect Name Role Phone Nonstaff, Referring Primary Care [...] this topic Insurance YESSENIA PPO Care Teams Solutions Architect Relationship Specialty Start Date End Date Nonstaff, Referring PCP - General 04/29/23
--- OUTSIDE RECORDS SUMMARY | 2025-03-31 13:48 | XMS_ITS | Encounter Summary ---
Author Organization [employer] ([place], [place], [place], [place], [place]) Address [address] [place] [address] Care Team Providers Care Inspector Exhaust Emissions Name Role Phone Unavailable Primary Care Provider Unavailabl e Reason for Visit * Reason Onset Date Comments GENERAL MESSAGE 01/08/2025 Encounter Details Date Type Department Care Team (Late st Contact Info) Description 01/08/2025 Telephone [facility] Primary Care - [facility] [address] [place] [address] Vinicius Song MD [address] [place] [address] GENERAL MESSAGE Social History Tobacco [...] 10:28 AM EDT FROM: Ac[place] TO: [facility] [address] [employer] STAFF [[id number]] SUBJECT: General Message PROVIDER: VINICIUS SONG [[id number]] DEPARTMENT: [facility] [[id number]] ENCOUNTER REASON FOR CALL: GENERAL MESSAGE ENCOUNTER TYPE: Telephone LAST VISIT DATE IS NOT APPLICABLE: Yes NEXT VISIT DATE IS NOT APPLICABLE: Yes WHAT'S THE PATIENT'S MESSAGE? 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 Yes MESSAGE PRIORITY: Routine CALLER'S NAME: Karan Gerald RELATION TO PATIENT: Self [1] PREFERRED LANGUAGE: [place] BEST CALL BACK PHONE NUMBER: Home Phone: ([phone]) WHAT IS THE BEST WAY FOR THE OFFICE TO CONTACT YOU?: OK to leave message on voicemail documented in this encounter Plan of Treatment Not on file documented as of this encounter Visit Diagnoses Not on filedocumented in this encounter
--- NOTE | 2025-03-31 13:49 | XR_ITS ---
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 No radiopaque/metallic foreign body identified. IMPRESSION: No foreign body identified. Reviewed, Interpreted and Dictated by Nini Alexander MD Transcribed by Brittney Cobb Authenticated and [facility]
--- NOTE | 2025-03-31 14:00 | MR_ITS ---
FINAL REPORT TECHNIQUE: Multiplanar and multisequence imaging of the brain was obtained before and after contrast administration. CLINICAL HISTORY: concern for pituitary abnormality FINDINGS: Brain parenchymal: There is no mass effect or midline shift. There are no areas of abnormal signal intensity.The cerebellum and brainstem are without acute abnormality. Ventricles: The ventricles are symmetric in size and configuration without hydrocephalus. Extra-axial spaces: No extra-axial fluid collections. Diffusion imaging: No areas of restricted diffusion to suggest acute infarct. Flow voids: Flow voids within the major intracranial vessels are preserved. Soft tissues: Soft tissues are without acute abnormality. The pituitary gland is normal in size. There is no deviation of the infundibulum. No hypoenhancing mass is identified. Enhancement within the pituitary appears symmetric from right to left. Post contrast imaging: No abnormal enhancement. IMPRESSION: No acute intracranial abnormality and no pathologic contrast enhancement. No convincing hypoenhancing pituitary mass. Pituitary is normal in size. Reviewed, Interpreted and Dictated by Nini Alexander MD Transcribed by Margarita Hernandez Authenticated and [facility] [place]
[2025-03-31] MEDS: 0.9 % SODIUM CHLORIDE 50 ML VIAL 10 ML IV (15:23)
[2025-03-31] MEDS: GADOTERIDOL INJ 20ML SYRINGE 13 ML IV (15:23)
== END 2025-03-31 23:59 | disposition home or self-care (01) ==
LOC: RAD 13:46
PROVIDERS: PCP Family Medicine; Visit Provider Student in an Organized Health Care Education/Training Program
DX: E29.1 Testicular hypofunction (principal); E23.7 Disorder of pituitary gland, unspecified
CPT/HCPCS: 70200; 70553; A9576